=== PATIENT | male | born 1960 | race Caucasian/White ===

== ENCOUNTER 2017-08-06 15:36 | Emergency (ER) | payer SELFPAY ==
[2017-08-06] MEDS ORDERED: METOLAZONE 5 MG TABLET PO ONE (16:16)
[2017-08-06] MEDS ORDERED: HYDROcodone/ACETAMINOPHEN 1 EACH TABLET PO ONE (16:16)
[2017-08-06] MEDS ORDERED: HYDROcodone/ACETAMINOPHEN 1 EACH TABLET ONE (16:26)
[2017-08-06] MEDS ORDERED: METOLAZONE 5 MG TABLET ONE (16:27)
[2017-08-06 16:31] LABS: Urine Bilirubin Negative (NEGATIVE); Urine Blood Negative /ul (NEGATIVE); Urine Ketone 15 mg/dL (NEGATIVE); Urine Nitrite Negative (NEGATIVE); Urine Protein Negative (NEGATIVE); Urine Urobilinogen Normal (NORMAL)
--- NOTE | 2017-08-06 16:32 | ERNOTE ---
Medical Problem HPI - General Chief Complaint: General Assessment Time Seen by Provider: 08/06/17 15:56 Source: patient, family Exam Limitations: no limitations - Immun/Allergies/Home Medications Immunizations: IMMUNIZATION HX Immunizations Up to Date Yes Allergies/Adverse Reactions: Allergies ceftazidime pentahydrate [From Fortaz] Allergy (Severe, Verified 08/06/17 15:52) Hives Cephalosporins Allergy (Severe, Verified 08/06/17 15:52) Hives Home Medications: HOME MEDICATIONS Ascorbic Acid [Vitamin C] 1,000 mg PO DAILY 10/11/13 [Last Taken Unknown] Cholecalciferol [Vitamin D] 5,000 unit PO DAILY 10/11/13 [Last Taken Unknown] Enalapril Maleate [Vasotec] 20 mg PO DAILY 10/11/13 [Last Taken Unknown] Testosterone Cypionate [Depo-Testosterone] mg IM 10/11/13 [Last Taken Unknown] Vitamin E 1,000 unit PO DAILY 10/11/13 [Last Taken Unknown] Carisoprodol [Soma (Carisoprodol)] 350 mg PO TID 10/24/13 [Last Taken Unknown] Clonazepam 1 mg PO TID 10/24/13 [Last Taken Unknown] metFORMIN HCL [Metformin HCl ER] 1,000 mg PO DAILY 10/24/13 [Last Taken Unknown] oxyCODONE HCL [Oxycodone] 10 mg PO Q4HWA PRN 10/24/13 [Last Taken Unknown] HYDROcodone/ACETAMINOPHEN [[place] 5-325] 1 each PO Q4H #20 tablet 08/06/17 [Last Taken Unknown] Metolazone [Zaroxolyn] 5 mg PO DAILY@1100 #7 tablet 08/06/17 [Last Taken Unknown ] Potassium Chloride 20 meq PO DAILY #7 packet 08/06/17 [Last Taken Unknown] - History of Present History Narrative: Patient states that he has liver cancer with advanced liver failure and has been in and out of hospice several times. He was started on oxycodone however he broke out in a rash and now is in severe pain as he also has a pathological hip fracture on the left. Timing: constant, getting worse Severity: severe Modifying Factors - (Improves): Present: immobilization Modifying Factors - (Worsens): Present: movement Review of Systems - Review of Systems Constitutional: Present: See HPI EYE: Present: no symptoms reported ENT: Present: no symptoms reported Respiratory: Present: no symptoms reported Cardiology: Present: no symptoms reported Gastrointestinal/Abdominal: Present: See HPI Genitourinary: Present: no symptoms reported Musculoskeletal: Present: See HPI, joint pain Skin: Present: no symptoms reported Neurological: Present: no symptoms reported Endocrine: Present: no symptoms reported Hematologic/Lymphatic: Present: no symptoms reported Psych: Present: no symptoms reported - Patient's Past Medical History Patient History - Medical: Diabetes Type 2, Liver Disease - liver cancer according to the patient Patient History - Cardiac/Respiratory: No pertinent hx Patient History - Cancer: Liver Patient History - Surgical Procedures: Other, Orthopedic Patient History - Other: None - Social History Living Situations: home Psych History: No pertinent hx - Immunizations Immunizations Up to Date: Yes Physical Exam - Physical Exam General Appearance: Present: wd/wn, alert, moderate distress Head Exam: Present: normal inspection Eye Exam: Normal inspection: bilateral, PERRL: bilateral Ears, Nose, Throat: Present: normal ENT inspection, H, normal pharynx Neck: Present: normal inspection, nontender Respiratory: Present: no respiratory distress, normal breath sounds, no accessory muscle use, chest nontender, lungs clear Cardiovascular/Chest: Present: regular rate, rhythm, no murmur, normal peripheral pulses Gastrointestinal/Abdominal: Present: normal bowel sounds, nondistended, soft, tenderness, hepatomegaly Rectal Exam: Present: deferred Back Exam: Present: normal inspection, normal range of motion Extremity Exam: Present: normal inspection, non-tender, no edema, normal range of motion Neurological Exam: Present: alert, oriented, normal mood/affect Skin Exam: Present: normal color, warm/dry Lymphatic Exam: Present: no adenopathy ED Progress - Vital Signs Patient's Vital Signs:: I have reviewed the patient's vital signs. Vital Signs: Vital Signs 08/06/17 15:45 Temperature 36.9 C Pulse Rate 89 Respiratory 19 Rate Blood Pressure 134/77 O2 Sat by Pulse 98 Oximetry - Progress/Reassessment Chief Complaint: General Assessment Plan - Plan Plan: Ashlee Goldstein came over and helped to arrange for home health care for the patient. It was explained to the patient that he will have chronic lower extremity edema because of liver failure and the difficulty that the liver is having making albumin. He stated that he was told that at the [facility] and at the [facility] and they told him all the can do for him with pain management and get him arranged with hospice. Departure Clinical Impression: Liver cancer Qualifiers: Liver malignancy type: unspecified primary liver malignancy Qualified Code(s): C22.8 - Malignant neoplasm of liver, primary, unspecified as to type Pathological fracture Qualifiers: Pathology associated with fracture: neoplastic disease Site of pathological fracture: hip Encounter type: initial encounter Laterality: left Qualified Code( s): M84.552A - Pathological fracture in neoplastic disease, left femur, initial encounter for fracture - Departure Disposition: Home self-care Condition: Poor Instructions: Liver Failure, Femoral Shaft Fracture Prescriptions: HYDROcodone/ACETAMINOPHEN [[place] 5-325] 1 each PO Q4H #20 tablet Metolazone [Zaroxolyn] 5 mg PO DAILY@1100 #7 tablet Potassium Chloride 20 meq PO DAILY #7 packet
[2017-08-06 16:47] LABS: Urine Appearance Clear; Urine Bacteria None Seen; Urine Color Yellow; Urine RBC None Seen /hpf (0-5); Urine WBC None Seen /hpf (0-5)
[2017-08-06 16:56] LABS: Hematocrit 32.2 % (42.0-52.0); Mean Cell Volume 88.5 fl (78-100); Mean Corpuscular Hemoglobin 30.2 pg (27-31); Mean Corpuscular Hgb Conc 34.2 g/dl (32-36); Mean Platelet Volume 9.9 fl (6.0-9.5); Neutrophil # 5.7 K/mm3 (1.3-6.0); Neutrophil % 82.5 % (42-75.0); Platelet Count 99 K/mm3 (150-450); Red Blood Count 3.64 M/mm3 (4.7-6.0); Red Cell Distribution Width 13.5 % (11.5-14.0); White Blood Count 6.9 K/mm3 (4.0-10.5)
[2017-08-06 17:15] LABS: INR 1.2 INR (0.90-1.10)
[2017-08-06 17:16] LABS: Anion Gap 10.1 mmol/L (6.8-13.8); BUN/Creatinine Ratio 14.1 (9.0-21.6); Bilirubin, Total 0.7 mg/dL (0.0-1.1); Calcium * 7.7 mg/dL (7.9-10.9); Carbon Dioxide 26.1 mmol/L (24-32.6); Potassium 3.2 mmol/L (3.4-4.6); Total Protein 5.8 gm/dL (6.2-8.2)
[2017-08-06] MEDS ORDERED: INSULIN LISPRO 100 UNITS/ML VIAL SC ONE (17:22)
[2017-08-06] MEDS ORDERED: INSULIN LISPRO 100 UNITS/ML VIAL ONE (17:25)
[2017-08-06 17:41] VITALS: BP 132/75
== END 2017-08-06 17:40 | disposition home or self-care (01) ==
LOC: ER 15:36
DX: M84.552A Pathological fracture in neoplastic disease, left femur, initial encounter for fracture (principal); C22.8 Malignant neoplasm of liver, primary, unspecified as to type

== ENCOUNTER 2017-11-03 01:09 | Emergency (ER) | payer SELFPAY | END 2017-11-03 01:14 | disposition left against medical advice (07) | LOC: ER 01:09 | DX: Z53.21 Procedure and treatment not carried out due to patient leaving prior to being seen by health care provider (principal) ==